=== PATIENT | female | born 1985 | race Caucasian/White ===

== ENCOUNTER 2017-08-21 20:23 | Emergency (ER) | payer OTHER ==
[~2017-08-21] VITALS: Ht 160 cm; Wt 62.6 kg
[~2017-08-21 20:23] MED LIST: FER300 PO; PRENATAL PLUS I1 TA1 PO; VITC PO
[2017-08-21 20:31] VITALS: Ht 160 cm; Wt 62.6 kg
[2017-08-21 21:15] VITALS: BP 99/59
== END 2017-08-21 21:15 | disposition home or self-care (01) ==
LOC: ED 20:23
DX: J06.9 Acute upper respiratory infection, unspecified (principal); J40 Bronchitis, not specified as acute or chronic; F12.10 Cannabis abuse, uncomplicated

== ENCOUNTER 2018-03-03 19:13 | Emergency (ER) | payer OTHER ==
[~2018-03-03] VITALS: Ht 157.5 cm; Wt 65.8 kg
[2018-03-03 19:17] VITALS: Ht 157.5 cm; Wt 65.8 kg
[2018-03-03 21:52] VITALS: BP 112/86
== END 2018-03-03 21:53 | disposition home or self-care (01) ==
LOC: ED 19:13
DX: M54.42 Lumbago with sciatica, left side (principal); X50.0XXA Overexertion from strenuous movement or load, initial encounter; Y93.89 Activity, other specified; Y92.89 Other specified places as the place of occurrence of the external cause; Y99.8 Other external cause status
CPT/HCPCS: J1885

== ENCOUNTER 2018-07-26 08:26 | Emergency (ER) | payer OTHER ==
[~2018-07-26] VITALS: Ht 157.5 cm; Wt 68.0 kg
[2018-07-26 08:33] VITALS: BP 113/43; Ht 157.5 cm; Wt 68.0 kg
== END 2018-07-26 10:27 | disposition home or self-care (01) ==
LOC: ED 08:26
DX: M79.642 Pain in left hand (principal)

== ENCOUNTER 2018-12-25 12:04 | Emergency (ER) | payer OTHER ==
[~2018-12-25] VITALS: Ht 157.5 cm; Wt 68.5 kg
[2018-12-25 12:22] VITALS: Ht 157.5 cm; Wt 68.5 kg
[2018-12-25 13:36] LABS: BASOPHIL % 0.3 % (0-2); PLATELET COUNT 323 x10^3mcL (130-400); RED CELL DISTRIBUTION WIDTH 12.7 % (11.5-14.5)
[2018-12-25 14:11] LABS: microscopic required? YES; urine erythrocyte 1+ (NEGATIVE)
[2018-12-25 16:12] VITALS: BP 97/67
== END 2018-12-25 16:12 | disposition home or self-care (01) ==
LOC: ED 12:04
PROVIDERS: Emergency Medicine
DX: O03.9 Complete or unspecified spontaneous abortion without complication (principal)
CPT/HCPCS: 36415

== ENCOUNTER 2020-01-31 14:34 | Emergency (ER) | payer OTHER ==
[~2020-01-31] VITALS: Ht 160 cm; Wt 64.9 kg
[2020-01-31 14:44] VITALS: Ht 160 cm; Wt 64.9 kg
[2020-01-31 15:28] LABS: BASOPHIL % 0.4 % (0-2); PLATELET COUNT 332 x10^3mcL (130-400); RED CELL DISTRIBUTION WIDTH 12.4 % (11.5-14.5)
[2020-01-31 15:35] LABS: CALCIUM 8.4 mg/dL (8.5-10.1); CARBON DIOXIDE 30.6 mmol/L (21-32); CHLORIDE SERUM 103 mmol/L (98-107); CREATININE SERUM 0.8 mg/dL (0.6-1.0); GFR1 > 60 mL/min; GLUCOSE SERUM 74 mg/dL (74-106); POTASSIUM SERUM 3.7 mmol/L (3.5-5.1); SODIUM SERUM 137 mmol/L (136-145)
[2020-01-31 15:41] LABS: ALBUMIN 3.7 g/dL (3.4-5.0); ALKALINE PHOSPHATASE 109 U/L (46-116); ALT/SGPT 19 U/L (14-59); AMYLASE 127 U/L (25-115); AST/SGOT 19 U/L (15-37); BILIRUBIN TOTAL 0.25 mg/dL (0.20-1.00); LIPASE 407 IU/L (73-393); TOTAL PROTEIN, SERUM 7.3 g/dL (6.4-8.2)
[2020-01-31 16:32] VITALS: BP 99/64
== END 2020-01-31 16:32 | disposition home or self-care (01) ==
LOC: ED 14:34
PROVIDERS: Emergency Medicine
DX: K52.9 Noninfective gastroenteritis and colitis, unspecified (principal)
CPT/HCPCS: J2405; J7030

== ENCOUNTER 2020-03-09 20:33 | Emergency (ER) | payer OTHER ==
[~2020-03-09] VITALS: Ht 157.5 cm; Wt 68.5 kg
[2020-03-09 20:39] VITALS: Ht 157.5 cm; Wt 68.5 kg
[2020-03-09 22:04] VITALS: BP 128/68
== END 2020-03-09 22:04 | disposition home or self-care (01) ==
LOC: ED 20:33
DX: S93.401A Sprain of unspecified ligament of right ankle, initial encounter (principal); X50.1XXA Overexertion from prolonged static or awkward postures, initial encounter; Y93.89 Activity, other specified; Y92.89 Other specified places as the place of occurrence of the external cause; Y99.8 Other external cause status
CPT/HCPCS: J1885; Q0092